=== PATIENT | female | born 1980 | race Caucasian/White ===

== ENCOUNTER 2017-12-11 04:01 | Emergency (ER) | payer OTHER, MEDICAID ==
[~2017-12-11] VITALS: Ht 165.1 cm; Wt 65.8 kg
[2017-12-11] MEDS: diphenhydrAMINE 50 MG/1 ML VIAL IM ONE (05:30)
[2017-12-11] MEDS: OLANZAPINE 10 MG VIAL IM ONE ×2 (05:30→10:16)
[2017-12-11] MEDS: NEOMY/BACITRA/POLYMYXIN B OINT UD PACKET TP ONE (05:30)
[2017-12-11] MEDS ORDERED: NEOMY/BACITRA/POLYMYXIN B OINT UD PACKET TP ONE (05:31)
[2017-12-11] MEDS ORDERED: diphenhydrAMINE 50 MG/1 ML VIAL ONE (05:32)
[2017-12-11] MEDS ORDERED: OLANZAPINE 10 MG VIAL IM ONE ×2 (05:33→10:31)
[2017-12-11 05:34] LABS: BASOPHILS % (AUTO) 0.3 % (0.0-2.0); EOSINOPHILS # (AUTO) 0.1 K/uL (0.0-0.7); EOSINOPHILS % (AUTO) 1.6 % (0.0-7.0); HEMATOCRIT 33.6 % (31.2-41.9); HEMOGLOBIN 11.1 g/dL (10.9-14.3); LYMPHOCYTES # (AUTO) 1.2 K/uL (20.0-40.0); LYMPHOCYTES % (AUTO) 24.7 % (20.5-51.5); MEAN CORPUSCULAR HEMOGLOBIN 26.5 uug (24.7-32.8); MEAN CORPUSCULAR HGB CONC 33 g/dL (32.3-35.6); MEAN CORPUSCULAR VOLUME 80.4 fL (75.5-95.3); MONOCYTES # (AUTO) 0.6 K/uL (2.0-10.0); MONOCYTES % (AUTO) 11.6 % (0.0-11.0); NEUTROPHILS # (AUTO) 3.1 K/uL (1.8-8.9); NEUTROPHILS % (AUTO) 61.8 % (38.5-71.5); PLATELET COUNT (AUTO) 258 K/uL (179-408); RED BLOOD CELL COUNT(AUTO) 4.18 MIL/uL (3.63-4.92)
[2017-12-11 05:44] LABS: CARBON DIOXIDE 28 mmol/L (21-32); CHLORIDE 102 mmol/L (98-107); CREATININE 0.9 mg/dL (0.6-1.3); GLUCOSE 89 mg/dL (74-106); POTASSIUM 3.7 mmol/L (3.5-5.1); UREA NITROGEN, BLOOD 19 mg/dL (7-18)
[2017-12-11 05:45] LABS: ETHANOL < 3 MG/DL (0-0)
[2017-12-11 05:50] LABS: ALANINE AMINOTRANSFERASE 106 U/L (14-59); ALKALINE PHOSPHATASE 73 U/L (50-136); ASPARTATE AMINOTRANSFERASE 105 U/L (15-37); BILIRUBIN,DIRECT 0.1 mg/dL (0.0-0.2); BILIRUBIN,TOTAL 0.5 mg/dL (0.2-1.0); TOTAL PROTEIN, SERUM 8.1 g/dL (6.4-8.2)
--- NOTE | 2017-12-11 05:55 | NUR ---
PT ASKED TO BE RELEASED FROM [facility]. SPOKE WITH MD HARRIS ABOUT PT'S REQUEST. SHE SAID ONLY ONE WRIST CAN BE RELEASED, AT THIS TIME, IF SHE PROMISES NOT TO HARM HERSELF OR RUN AWAY. PT AGREED TO THESE TERMS. RIGHT WRIST WAS RELEASED.
[2017-12-11 05:57] LABS: ACETAMINOPHEN < 2.0 ug/mL (10-30)
[2017-12-11 05:58] LABS: THYROID STIMULATING HORMONE 1.693 mIU/mL (0.358-3.740)
--- NOTE | 2017-12-11 06:04 | NUR ---
PT MEDICALLY CLEARED. SPOKE WITH MARICRUZ BOBO. HE WILL BE HERE SHORTLY AFTER 0700 FOR PSYCH EVAL.
--- NOTE | 2017-12-11 07:20 | NUR ---
RECIEVED PT ON BED RESTING, EYES CLOSED. NO SIGN OF DISTRESS.
--- NOTE | 2017-12-11 07:20 | NUR ---
PT ENDORSED TO [facility]
--- NOTE | 2017-12-11 07:20 | NUR ---
PT CALM AT THIS POINT REMOVED THE RESTRAINT.
--- NOTE | 2017-12-11 07:35 | NUR ---
Pt ambulated to restroom with steady gait, clean catch urine specimen obtained and sent to lab.
--- NOTE | 2017-12-11 08:10 | NUR ---
HOSPITAL BREAK FAST PROVIDED FOR PT.
[2017-12-11 08:38] LABS: *AMPHETAMINE, URINE POSITIVE (NEGATIVE); *BARBITURATE, URINE POSITIVE (NEGATIVE); *CANNABINOID, URINE NEGATIVE (NEGATIVE); *COCCAINE, URINE NEGATIVE (NEGATIVE); *OPIATE, URINE POSITIVE (NEGATIVE); *PHENCYCLIDINE SCREEN,URINE NEGATIVE (NEGATIVE)
--- NOTE | 2017-12-11 08:58 | NUR ---
MARICRUZ BOBO AT BEDSIDE TO EVALUATE THE PT.
[2017-12-11 09:05] LABS: *BILIRUBIN,URIN NEGATIVE (NEGATIVE); *BLOOD, URINE NEGATIVE (NEGATIVE); *CLARITY,URINE CLEAR (CLEAR); *COLOR,URINE YELLOW (YELLOW); *KETONES,URINE 1+ (NEGATIVE); *PROTEIN,URINE NEGATIVE (NEGATIVE); *UROBILINOGEN,URINE 0.2 E.U./dl (NORMAL); LEUKOCYTE ESTERASE ,URINE 2+ (NEGATIVE); NITRITE, URINE NEGATIVE (NEGATIVE); PH,URINE 6.5 (5.0-8.0); UGLUCOSE NEGATIVE (NEGATIVE)
[2017-12-11 09:08] LABS: BACTERIA,URINE MANY /HPF (NONE SEEN); SQUAMOUS EPITHELIAL CELL,UR MODERATE /HPF (NONE SEEN)
--- NOTE | 2017-12-11 10:08 | NUR ---
CALLED NANCY MARTINEZ ON THE PT. PT TRYING TO LEAVE THE FASCILITY INSPITE OF ALL THE EXPLANATION AND ORIENTATION PROVIDED BY MARICRUZ BOBO .
--- NOTE | 2017-12-11 10:30 | NUR ---
PT STILL BRIANNA UNCOOPERATIVE, THROWING FIST AND PERSONE, RESTLESS. PT PLACED ON RESTRINR PER MD ORDER.
--- NOTE | 2017-12-11 11:28 | NUR ---
WILLY CALLED BACK FROM [facility]. GOT THE INFO AND WILL CALL BACK AGAIN
--- NOTE | 2017-12-11 11:59 | NUR ---
REMOVED THE RESPTRAINT
--- NOTE | 2017-12-11 12:09 | NUR ---
WILLY CALLED BACK AND ACCEPTED THE PT FOR [facility]ERIE PINA, ACCEPTING MD DR. BOWERS, PT GOING TO [place] [id number] AT [facility]. REPORT NUMBER [phone]
--- NOTE | 2017-12-11 12:10 | NUR ---
CALLED [facility] FOR TRANSPORT, ETA 90 MINUTES, TICKET [phone]
[2017-12-11] MEDS: CIPROFLOXACIN 0.3% OPHT OINT 3.5 GM TUBE EACHEYE SCH (12:44)
--- NOTE | 2017-12-11 12:49 | NUR ---
CALLED FOR REPORT, GAVE REPORT TO KEILA.
[2017-12-11] MEDS ORDERED: CIPROFLOXACIN 0.3% OPHT DROP 2.5 ML BOTTLE ONE (13:01)
--- NOTE | 2017-12-11 13:02 | NUR ---
NIMESH HANSON PROVIDED FOR PT.
--- NOTE | 2017-12-11 13:23 | NUR ---
PT TRANSFERD TO [facility] IN STABLE CONDITION.
== END 2017-12-11 13:24 | disposition short-term general hospital (02) ==
LOC: ER 04:04
DX: F29 Unspecified psychosis not due to a substance or known physiological condition (principal); H10.9 Unspecified conjunctivitis; F19.10 Other psychoactive substance abuse, uncomplicated
CPT/HCPCS: 36415; 80307; 84443; 84703; 85025; A4663; G0480; G0480-TC; J1200; J2358